=== PATIENT | male | born 1970 | race Caucasian/White ===

== ENCOUNTER 2016-07-05 15:22 | Emergency (ER) | payer MEDICARE, OTHER ==
[2016-07-05 16:15] LABS: BASO % 0.4 % (0.2-1.2); EOS # 0.2 10_X3_uL (0.0-0.5); EOS % 1.7 % (0.8-7.0); GRAN # 5.8 10_X3_uL (1.8-5.4); GRAN % 62.1 % (34.0-67.9); HEMOGLOBIN 16.9 g/dL (13.7-17.5); LYMPH # 2.6 10_X3_uL (1.3-3.6); LYMPH % 28.1 % (21.8-53.1); MEAN CORPUSCULAR HEMOGLOBIN 30.6 pg (27.0-33.0); MEAN CORPUSCULAR HGB CONC 35.2 g/dL (32.0-36.0); MONO # 0.7 10_X3_uL (0.3-0.8); MONO % 7.7 % (5.3-12.2); PLATELET COUNT 115 x10_3/uL (163-337); RED BLOOD COUNT 5.52 x10_6/uL (4.6-6.1); RED CELL DISTRIBUTION WIDTH 14.3 % (11.6-14.4); WHITE BLOOD COUNT 9.3 x10_3/uL (4.2-9.1)
[2016-07-05 16:31] LABS: ALBUMIN 4.3 gm/dL (3.4-5.0); ALKALINE PHOSPHATASE 92 U/L (50-136); ALT/SGPT 100 U/L (7.53-40.17); AST/SGOT 82 U/L (6.66-35.34); BILIRUBIN,TOTAL 0.47 mg/dL (0.0-1.0); BLOOD UREA NITROGEN 13 mg/dL (7-18); CALCIUM 9.7 mg/dL (8.7-10.7); CARBON DIOXIDE 23 mmol/L (21-32); CREATININE 0.8 mg/dL (0.6-1.3); GLUCOSE,RANDOM 153 mg/dL (70-99); LIPASE 29 U/L (6.75-60.75); SODIUM 138 mmol/L (136-145); TOTAL PROTEIN 7.2 gm/dL (6.4-8.2)
[2016-07-05 16:38] LABS: POTASSIUM 4.7 mmol/L (3.5-5.1)
[2016-07-05 16:44] LABS: URINE BILIRUBIN NEGATIVE (NEGATIVE); URINE BLOOD TRACE (NEGATIVE); URINE GLUCOSE (UA) NORMAL (NORMAL); URINE KETONE TRACE (NEGATIVE); URINE LEUKOCYTE ESTERASE TRACE (NEGATIVE); URINE NITRATE NEGATIVE (NEGATIVE); URINE PROTEIN TRACE (NEGATIVE)
[2016-07-05 17:14] LABS: URINE BACTERIA TRACE (NONE SEEN); URINE MUCUS TRACE; URINE RBC RARE /[HPF] (0-2); URINE SPERM PRESENT; URINE SQUAMOUS EPITHELIAL CELL 0-10 /[HPF] (NONE SEEN); URINE WBC 0-5 /[HPF] (0-3)
== END 2016-07-05 19:27 | disposition home or self-care (01) ==
LOC: ER 15:22
PROVIDERS: Internal Medicine
DX: R10.9 Unspecified abdominal pain (principal); R11.2 Nausea with vomiting, unspecified; F41.9 Anxiety disorder, unspecified; I10 Essential (primary) hypertension; Z88.1 Allergy status to other antibiotic agents; Z79.899 Other long term (current) drug therapy; F17.210 Nicotine dependence, cigarettes, uncomplicated
CPT/HCPCS: 36415; 74022; 76705; 80053; 81001; 83690; 85025; 99070; 99284; 99284-25; J7040; Q9967